=== PATIENT | female | born 1955 | race Caucasian/White ===

== ENCOUNTER → 2016-10-24 | Outpatient (CLI) | payer BC ==
[~2016-10-24] MED LIST: ALL180 PO; B-COCAP2 PO; CHOL20009 PO; MELO7.5T5 PO; MULT-506 PO
--- NOTE | 2016-10-24 10:29 | DIAGNOSTIC IMAGING REPORT ---
SI JOINTS 3 OR MORE VIEWS CLINICAL HISTORY: SACROILIITIS COMPARISON STUDY: AP pelvis performed June 2010 FINDINGS: There is no evidence of SI joint fusion. There are no definite erosive changes. Evaluation the right SI joint is somewhat limited due to positioning. There are mild degenerative changes. There are postsurgical changes of a right hip arthroplasty. No fractures are visualized. IMPRESSION: Degenerative changes within the SI joints. No conventional radiographic evidence of an inflammatory sacroiliitis Electronically signed by: Norbert Pedroza M.D. 10/24/2016 10:28 AM Dictated Date/Time: 10/24/2016 10:26 AM
== END | disposition home or self-care (01) ==
LOC: C.RADBC 10:02
PROVIDERS: ATTEND Physician Assistant Medical
DX: M46.1 Sacroiliitis, not elsewhere classified (principal); M53.3 Sacrococcygeal disorders, not elsewhere classified